=== PATIENT | female | born 1960 | race Caucasian/White ===

== ENCOUNTER → 2020-09-09 | Outpatient (CLI) | payer BC ==
[2020-09-11 16:11] LABS: ANTIMYELOPEROXIDASE (MPO) ABS >100.0 U/mL (0.0-9.0); ANTIPROTEINASE 3 (PR-3) ABS <3.5 U/mL (0.0-3.5); ATYPICAL PANCA <1:20 titer (Neg:<1:20); PERINUCLEAR (P-ANCA) >1:640 titer (Neg:<1:20)
== END ==
LOC: LAB 11:31
PROVIDERS: Internal Medicine
DX: I77.6 Arteritis, unspecified (principal); R76.8 Other specified abnormal immunological findings in serum; I77.5 Necrosis of artery; Z79.899 Other long term (current) drug therapy
CPT/HCPCS: 36415; 83520; 86256

== ENCOUNTER → 2020-10-20 | Outpatient (CLI) | payer BC | LOC: EXRD 10-14 09:30 | DX: M81.0 Age-related osteoporosis without current pathological fracture (principal) | CPT/HCPCS: 77080 ==

== ENCOUNTER → 2021-01-06 | Outpatient (CLI) | payer BC ==
[~2021-01-06] VITALS: Ht 167.6 cm; Wt 95.3 kg
== END ==
LOC: OPSV 12:00
DX: M81.0 Age-related osteoporosis without current pathological fracture (principal)
CPT/HCPCS: 96372

== ENCOUNTER → 2021-02-17 | Outpatient (CLI) | payer BC ==
[~2021-02-17] VITALS: Ht 167.6 cm; Wt 95.3 kg
[2021-02-17 08:02] LABS: HEMOGLOBIN 12.8 gm/dl (12.3-15.3); RED BLOOD COUNT 4.11 M/UL (4.00-5.10); WHITE BLOOD COUNT 12.7 K/UL (4.5-11.0)
[2021-02-20 15:14] LABS: ANTIMYELOPEROXIDASE (MPO) ABS 64.5 U/mL (0.0-9.0); ANTIPROTEINASE 3 (PR-3) ABS <3.5 U/mL (0.0-3.5); ATYPICAL PANCA <1:20 titer (Neg:<1:20); CYTOPLASMIC (C-ANCA) 1:20 titer (Neg:<1:20)
[2021-03-03 12:10] LABS: 6-MMPN 3609 (.); 6-TGN 263 (.)
== END ==
LOC: OPSV 07:00
PROVIDERS: Internal Medicine
DX: Z51.81 Encounter for therapeutic drug level monitoring (principal); I77.6 Arteritis, unspecified; M31.9 Necrotizing vasculopathy, unspecified; Z79.899 Other long term (current) drug therapy
CPT/HCPCS: 36415; 80053; 80299; 83520; 85025; 86256; 96375; 96413; 96415; J2930; J7030; J9312

== ENCOUNTER → 2021-03-03 | Outpatient (CLI) | payer BC ==
[~2021-03-03] VITALS: Ht 167.6 cm; Wt 95.3 kg
== END ==
LOC: OPSV 06:48
DX: I77.5 Necrosis of artery (principal)
CPT/HCPCS: 96375; 96413; 96415; J2930; J7030; J9312

== ENCOUNTER → 2021-07-09 | Outpatient (CLI) | payer BC | LOC: OPSV 11:52 | DX: M81.0 Age-related osteoporosis without current pathological fracture (principal) | CPT/HCPCS: 96372 ==

== ENCOUNTER → 2021-09-04 | Outpatient (CLI) | payer BC ==
[~2021-09-04] VITALS: Ht 167.6 cm; Wt 95.3 kg
== END ==
LOC: OPSV 09-03 09:00
DX: I77.89 Other specified disorders of arteries and arterioles (principal); M31.9 Necrotizing vasculopathy, unspecified; J44.9 Chronic obstructive pulmonary disease, unspecified; M81.0 Age-related osteoporosis without current pathological fracture; G43.909 Migraine, unspecified, not intractable, without status migrainosus
CPT/HCPCS: 96375; 96413; 96415; J2930; J7030; J9312